=== PATIENT | female | born 1985 | race Hispanic/Latino ===

== ENCOUNTER 2023-01-13 22:42 | Emergency (ER) | payer MEDICAID ==
[2023-01-13] MEDS ORDERED: Fluorescein Opthalmic Strip ONE (22:49)
[2023-01-13] MEDS ORDERED: Tetracaine 0.5% PF 4 ML BOT ONE (22:50)
[2023-01-13] MEDS ORDERED: Ibuprofen 200 MG TAB ONE (23:17)
== END 2023-01-13 23:22 | disposition home or self-care (01) ==
LOC: NAV ERS 22:42
DX: S05.12XA Contusion of eyeball and orbital tissues, left eye, initial encounter (principal); W22.8XXA Striking against or struck by other objects, initial encounter; Z79.899 Other long term (current) drug therapy
CPT/HCPCS: 99283

== ENCOUNTER 2023-09-19 09:43 | Emergency (ER) | payer OTHER ==
[2023-09-19] MEDS ORDERED: HYDROcodone/Acetaminophen 5/325 mg Tablet ONE (10:07)
== END 2023-09-19 10:50 | disposition home or self-care (01) ==
LOC: NAV ERS 09:43
DX: K08.89 Other specified disorders of teeth and supporting structures (principal); F17.210 Nicotine dependence, cigarettes, uncomplicated
CPT/HCPCS: 99282

== ENCOUNTER 2024-02-17 21:33 | Emergency (ER) | payer MEDICAID, OTHER, SELFPAY ==
[2024-02-17] MEDS ORDERED: Ketorolac Tromethamine 30 MG (1 mL) VIAL ONE (22:07)
[2024-02-17] MEDS ORDERED: Sodium Chloride 0.9% 1,000 ML ONE (22:07)
[2024-02-17] MEDS ORDERED: Cyclobenzaprine 10 MG TAB ONE ×2 (23:11→23:12)
== END 2024-02-17 23:36 | disposition home or self-care (01) ==
LOC: NAV ERS 21:33
DX: S13.9XXA Sprain of joints and ligaments of unspecified parts of neck, initial encounter (principal); S50.11XA Contusion of right forearm, initial encounter; S80.02XA Contusion of left knee, initial encounter; S80.01XA Contusion of right knee, initial encounter; F17.210 Nicotine dependence, cigarettes, uncomplicated; V43.62XA Car passenger injured in collision with other type car in traffic accident, initial encounter
CPT/HCPCS: 72125; 96374; J1885; J7030